=== PATIENT | male | born 1935 | race Caucasian/White ===

== ENCOUNTER 2016-07-16 16:01 | Outpatient (CLI) | payer MEDICARE, BC ==
--- NOTE | 2016-07-16 18:21 | RAD ---
2 VIEWS OF CHEST: Date: 07/16/16 INDICATION: Chest wall pain. No prior comparison. FINDINGS: There is elevation of the left hemidiaphragm. The cardiac silhouette is at upper limits of normal in size. There is ectasia and tortuosity of the partially calcified thoracic aorta. Granulomatous calc ification of the chest is present. There is prominent osteophytosis of the visualized spine. No loba r consolidation, effusion, or discrete pneumothorax. IMPRESSION: 1. Chronic findings of the chest, as above. 2. No lobar consolidation. POS: [facility]
== END 2016-07-16 16:02 | disposition home or self-care (01) ==
LOC: MADRAD 16:01
PROVIDERS: ATTEND Obstetrics & Gynecology
DX: R07.89 Other chest pain (principal)
CPT/HCPCS: 71020

== ENCOUNTER 2017-05-02 19:30 | Emergency (ER) | payer MEDICARE, BC ==
[~2017-05-02 19:30] MED LIST: Sodium Chloride 0.9% 500 ML BAG ONE
[2017-05-02 19:58] LABS: #Basophils 0.1 thou/uL (0.0-0.2); #Eosinphils 0.1 thou/uL (0.0-0.7); #Lymphocytes 0.8 thou/uL (1.20-3.40); #Monocytes 0.5 thou/uL (0.11-0.59); #Neutrophils 4.9 thou/uL (1.40-6.50); %Lymphocytes 12.1 % (21.0-51.0); %Monocytes 8.4 % (0.0-10.0); %Neutrophils 76.5 % (42.0-75.0); Hemoglobin 13.4 g/dL (14.0-18.0); Mean Corpuscular HGB CONC 33.4 g/dL (32.0-36.0); Mean Corpuscular Hemoglobin 31.8 pg (27.0-31.0); Mean Corpuscular Volume 95.1 fl (80.0-94.0); Mean Platelet Volume 6.7 fL (7.4-10.4); Platelet Count 199 thou/uL (130-400); RBC Distribution Width 12.5 % (11.5-14.5); Red Blood Cell (RBC) Count 4.21 mill/uL (4.70-6.10); White Blood Cell (WBC) Count 6.4 thou/uL (4.8-10.8)
[2017-05-02 20:04] LABS: INR-International Normal Ratio 0.9; PTT 28.1 SEC (22.9-36.1); Prothrombin Time 12.6 SEC (12.0-14.7)
[2017-05-02 20:15] LABS: ALT (SGPT) Less than 6 U/L (8-55); AST (SGOT) 10 U/L (5-34); Albumin 3.8 g/dL (3.4-4.8); Alkaline Phosphatase 86 U/L (40-150); Anion Gap 17 mmol/L (10-20); BUN (Urea Nitrogen) 22 mg/dL (8.4-25.7); Bilirubin, Total 0.5 mg/dL (0.2-1.2); Calc. Creatinine Clearance 0 mL/min (70-130); Carbon Dioxide 23 mmol/L (23-31); Chloride 103 mmol/L (98-107); Estimated GFR-MDRD 50; Globulin 2.9 g/dL (2.4-3.5); Glucose 130 mg/dL (83-110); Potassium 4.1 mmol/L (3.5-5.1); Protein, Total 6.7 g/dL (5.8-8.1); Sodium 139 mmol/L (136-145)
[2017-05-02 20:18] LABS: CKMB 6.2 ng/mL (0-6.6); Troponin I 0.026 ng/mL (< 0.028)
[2017-05-02 20:51] LABS: Bilirubin Small (Negative); Blood, Urine Negative (Negative); Clarity Clear (Clear); Glucose, Urine (Dipstick) Negative (Negative); Leukocyte Negative (Negative); Nitrite Negative (Negative); Protein, Urine (Dipstick) 100 mg/dL (Neg-Trace); pH, Urine 5.5 (5.0-9.0)
[2017-05-02 20:56] LABS: Specific Gravity, Urine 1.027 (1.002-1.036)
[2017-05-02 20:57] LABS: RBC/HPF 0-3 HPF (0-3); Squamous Epithelial 0-3 HPF (0-3); WBC/HPF 0-3 HPF (0-3)
[2017-05-02 20:58] LABS: Bacteria/HPF None Seen HPF (None Seen); Hyaline Casts/LPF 0-3 HYALINE CAST LPF (0-3 Hyaline)
[2017-05-02 20:59] LABS: Other Microscopic Description 1+ Amorph. Sed.
--- NOTE | 2017-05-02 21:12 | CT ---
CT HEAD NONCONTRAST: History: Altered mental status. FINDINGS: There is no evidence of acute intracranial hemorrhage or infarct. Diffuse cortical atrophy and chroni c ischemic small vessel disease are apparent. There is no mass effect or shift of midline structures. IMPRESSION: No acute intracranial abnormalities are demonstrated on noncontrast CT head. POS: [facility]
--- NOTE | 2017-05-02 21:22 | RAD ---
CHEST ONE VIEW: History: Altered mental status. Dyspnea. Comparison: 07-16-16 FINDINGS: Cardiac silhouette is magnified by projection. Lungs remain hyperinflated. Mediastinum is midline wit h aortic calcification. Pulmonary vasculature is unremarkable. Calcified granulomata are consistent w ith healed granulomatous disease. Lungs remain hyperinflated. Elevation of each humeral head has the appearance of chronic rotator cuff tears. account services analyst leads overlie the chest. IMPRESSION: 1. COPD and other chronic type findings are stable. No active cardiopulmonary abnormalities are demon strated. POS: [facility]
== END 2017-05-02 22:00 | disposition home or self-care (01) ==
LOC: MADERS 19:30
DX: E86.0 Dehydration (principal); G20 Parkinson's disease; F02.80 Dementia in other diseases classified elsewhere, unspecified severity, without behavioral disturbance, psychotic disturbance, mood disturbance, and anxiety; I25.10 Atherosclerotic heart disease of native coronary artery without angina pectoris; E78.5 Hyperlipidemia, unspecified; M06.9 Rheumatoid arthritis, unspecified; I10 Essential (primary) hypertension; F17.210 Nicotine dependence, cigarettes, uncomplicated; Z79.82 Long term (current) use of aspirin; Z79.899 Other long term (current) drug therapy
CPT/HCPCS: 36416; 51701; 70450; 71010; 80053; 81003; 81015; 82553; 83605; 84443; 84484; 85025; 85610; 85730; 87040; 87149; 93005; 94760; 96360; J7050

== ENCOUNTER 2017-05-17 21:00 | Emergency (ER) | payer MEDICARE, BC ==
[~2017-05-17 21:00] MED LIST changes: -Sodium Chloride 0.9% 500 ML BAG ONE; +Sterile Water Irrigation 250 ML BOT ONE
[2017-05-17] MEDS ORDERED: Adacel (T-DAP) 0.5 ML VIAL ONE (21:36)
[2017-05-17] MEDS ORDERED: Bacitracin Zinc 1 Packet ONE ×2 (21:46→22:25)
[2017-05-17] MEDS ORDERED: Lidocaine 2% w/Epinephrine 1:200K 20 ML VIAL ONE (21:47)
--- NOTE | 2017-05-17 22:13 | CT ---
CT OF HEAD NONCONTRAST 05/17/17 COMPARISON: 05/02/17 CLINICAL HISTORY: Trauma. FINDINGS: There is a left frontal scalp hematoma. No evidence of intracranial hemorrhage, mass effect or midlin e shift. There is moderate chronic microvascular ischemic disease of the cerebral white matter. 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 IMPRESSION: 1. No intracranial hemorrhage or mass effect. 2. Left frontal scalp hematoma. 3. Chronic ischemic disease. POS: [facility]
--- NOTE | 2017-05-17 22:38 | CT ---
CERVICAL SPINE CT NONCONTRAST 05/17/17 INDICATION: Posttraumatic neck pain. FINDINGS: There is mild to moderate multilevel degenerative changes cervical spine. Trace spondylolisthesis at C4-5 is present. No compression fracture or significant retropulsion of bone into the vertebral canal . There is degenerative change at the atlantodental articulation without evidence of craniocervical d istraction. There is incidental note of pulmonary emphysema with subpleural bleb formation at the keerthi g apices. IMPRESSION: There is no definite acute fracture of the cervical spine. Multilevel degenerative change is present. POS: [facility]
== END 2017-05-17 22:44 ==
LOC: MADERS 21:00
DX: S01.81XA Laceration without foreign body of other part of head, initial encounter (principal); S51.812A Laceration without foreign body of left forearm, initial encounter; I25.10 Atherosclerotic heart disease of native coronary artery without angina pectoris; E78.5 Hyperlipidemia, unspecified; I10 Essential (primary) hypertension; G20 Parkinson's disease; F03.90 Unspecified dementia, unspecified severity, without behavioral disturbance, psychotic disturbance, mood disturbance, and anxiety; M06.9 Rheumatoid arthritis, unspecified; Z87.891 Personal history of nicotine dependence; Z79.82 Long term (current) use of aspirin; Z79.899 Other long term (current) drug therapy; W01.198A Fall on same level from slipping, tripping and stumbling with subsequent striking against other object, initial encounter; Y93.H3 Activity, building and construction; Y92.239 Unspecified place in hospital as the place of occurrence of the external cause
CPT/HCPCS: 12014; 70450; 72125; 90471; 90715; 93005

== ENCOUNTER 2017-07-07 12:03 | Emergency (ER) | payer MEDICARE, BC ==
[2017-07-07 13:49] LABS: Bilirubin Negative (Negative); Blood, Urine Large (Negative); Glucose, Urine (Dipstick) Negative (Negative); Leukocyte Negative (Negative); Nitrite Negative (Negative); Protein, Urine (Dipstick) Negative (Neg-Trace); Specific Gravity, Urine 1.015 (1.005-1.030); Urobilinogen 0.2 mg/dL (0.2-1.0)
[2017-07-07 13:57] LABS: Bacteria/HPF Rare-Few HPF (None Seen); Clarity Hazy (Clear); Squamous Epithelial 0-3 HPF (0-3); WBC/HPF 0-3 HPF (0-3)
== END 2017-07-07 15:00 | disposition home or self-care (01) ==
LOC: MADERS 12:03
DX: R33.9 Retention of urine, unspecified (principal); R31.9 Hematuria, unspecified; F03.90 Unspecified dementia, unspecified severity, without behavioral disturbance, psychotic disturbance, mood disturbance, and anxiety; I25.10 Atherosclerotic heart disease of native coronary artery without angina pectoris; E78.5 Hyperlipidemia, unspecified; I10 Essential (primary) hypertension; M06.9 Rheumatoid arthritis, unspecified; M48.00 Spinal stenosis, site unspecified; G20 Parkinson's disease; Z87.891 Personal history of nicotine dependence; Z79.82 Long term (current) use of aspirin; Z79.899 Other long term (current) drug therapy
CPT/HCPCS: 51702; 81001; 87086

== ENCOUNTER 2017-07-16 18:02 | Outpatient (CLI) | payer MEDICARE, BC ==
[2017-07-16 18:28] LABS: Bilirubin Negative (Negative); Blood, Urine Negative (Negative); Glucose, Urine (Dipstick) Negative (Negative); Leukocyte Negative (Negative); Nitrite Negative (Negative); Protein, Urine (Dipstick) 30 mg/dL (Neg-Trace); Urobilinogen 0.2 mg/dL (0.2-1.0); pH, Urine 5.5 (5.0-9.0)
[2017-07-16 18:33] LABS: Clarity Hazy (Clear)
[2017-07-16 18:34] LABS: Bacteria/HPF None Seen HPF (None Seen); Crystals/HPF 1+ AMORPH PHOS HPF (Negative); RBC/HPF None Seen HPF (0-3); Squamous Epithelial 0-3 HPF (0-3); WBC/HPF None Seen HPF (0-3)
== END 2017-07-16 18:03 | disposition home or self-care (01) ==
LOC: MADLAB 18:02
PROVIDERS: ATTEND Obstetrics & Gynecology
DX: I10 Essential (primary) hypertension (principal)
CPT/HCPCS: 81001

== ENCOUNTER 2017-09-26 15:52 | Emergency (ER) | payer MEDICARE, BC ==
[2017-09-26 16:54] LABS: #Basophils 0.1 thou/uL (0.0-0.2); #Eosinphils 0.1 thou/uL (0.0-0.7); #Lymphocytes 0.8 thou/uL (1.20-3.40); #Monocytes 0.4 thou/uL (0.11-0.59); #Neutrophils 7.7 thou/uL (1.40-6.50); %Basophils 0.6 % (0.0-1.0); %Eosinophils 0.6 % (0.0-10.0); %Lymphocytes 9.3 % (21.0-51.0); %Neutrophils 85.5 % (42.0-75.0); Mean Corpuscular HGB CONC 32.4 g/dL (32.0-36.0); Mean Corpuscular Hemoglobin 27.7 pg (27.0-31.0); Mean Corpuscular Volume 85.6 fl (80.0-94.0); Mean Platelet Volume 5.4 fL (7.4-10.4); Platelet Count 284 thou/uL (130-400); RBC Distribution Width 14.8 % (11.5-14.5); Red Blood Cell (RBC) Count 4.34 mill/uL (4.70-6.10)
[2017-09-26 17:08] LABS: ALT (SGPT) 9 U/L (8-55); AST (SGOT) 13 U/L (5-34); Albumin 3.3 g/dL (3.4-4.8); Alkaline Phosphatase 75 U/L (40-150); Anion Gap 17 mmol/L (10-20); BUN (Urea Nitrogen) 18 mg/dL (8.4-25.7); Bilirubin, Total 0.4 mg/dL (0.2-1.2); Calc. Creatinine Clearance 0 mL/min (70-130); Calcium 9.3 mg/dL (7.8-10.44); Carbon Dioxide 24 mmol/L (23-31); Chloride 106 mmol/L (98-107); Estimated GFR-MDRD Greater than 90; Globulin 3.1 g/dL (2.4-3.5); Glucose 89 mg/dL (83-110); Potassium 4.5 mmol/L (3.5-5.1); Protein, Total 6.4 g/dL (5.8-8.1); Sodium 142 mmol/L (136-145)
[2017-09-26 17:11] LABS: Troponin I 0.024 ng/mL (< 0.028)
[2017-09-26 17:33] LABS: CKMB 7.1 ng/mL (0-6.6)
--- NOTE | 2017-09-26 17:58 | CT ---
CT BRAIN NONCONTRAST: 09/26/17 HISTORY: 82-year-old male with altered mental status. FINDINGS: There is no midline shift or any other mass effect. There is no evidence of acute intracranial hemor rhage, large cortical infarct, obstructive hydrocephalus, or extraaxial fluid collection. The calvar ium is intact. There is diffuse parenchymal volume loss. There are low attenuation areas in the whi te matter. These are nonspecific, but in a patient of this age, they are probably chronic ischemic w marlys matter changes due to microvascular atherosclerosis. IMPRESSION: 1) No acute intracranial findings. 2) Involutional changes and severe chronic ischemic white matter changes. jn [] POS: [facility]
[2017-09-26] MEDS ORDERED: Aspirin 325 MG TAB ONE (18:07)
[2017-09-26 18:09] LABS: Bilirubin Negative (Negative); Blood, Urine Negative (Negative); Glucose, Urine (Dipstick) Negative (Negative); Leukocyte Negative (Negative); Nitrite Negative (Negative); Protein, Urine (Dipstick) 100 mg/dL (Neg-Trace); Urobilinogen 0.2 mg/dL (0.2-1.0); pH, Urine 6.5 (5.0-9.0)
[2017-09-26 18:30] LABS: Bacteria/HPF 1+ HPF (None Seen); Clarity Hazy (Clear); RBC/HPF 0-3 HPF (0-3); WBC/HPF 0-3 HPF (0-3)
== END 2017-09-26 18:30 | disposition short-term general hospital (02) ==
LOC: MADERS 15:52
DX: R41.82 Altered mental status, unspecified (principal); I10 Essential (primary) hypertension; E78.5 Hyperlipidemia, unspecified; M06.9 Rheumatoid arthritis, unspecified; G20 Parkinson's disease; F03.90 Unspecified dementia, unspecified severity, without behavioral disturbance, psychotic disturbance, mood disturbance, and anxiety; I25.10 Atherosclerotic heart disease of native coronary artery without angina pectoris; Z87.891 Personal history of nicotine dependence
CPT/HCPCS: 36416; 51701; 70450; 80053; 81003; 81015; 82553; 84443; 84484; 85025; 93005; 36415-59